=== PATIENT | male | born 1960 | race Caucasian/White ===

== ENCOUNTER 2018-08-20 20:14 | Emergency (ER) | payer SELFPAY ==
[~2018-08-20] VITALS: Ht 177.8 cm; Wt 97.6 kg
[2018-08-20 20:24] VITALS: RESP 18; Ht 177.8 cm; Wt 97.6 kg
--- NOTE | 2018-08-21 01:59 | ERD ---
ER Documentation Chief Complaint Chief Complaint pain right foot x 1 week, denies trauma. also c/o gen body pain HPI This is a 57-year-old male presents emergency department with complaints of right foot pain for about a week. Stated that pain is worse every morning when he started stepping on it. Also stated that last Saturday he had an intake of beer and the pain got worse. Also added that he has history of gout. Denies headache, head injury, loss of consciousness, dizziness, neck pain, neck stiffness, throat pain, difficulty swallowing, difficulty breathing lying flat, shoulder pain, chest pain, back pain, abdominal pain, nausea, vomiting, constipation, diarrhea, urinary symptoms, loss of bowel and bladder control, trauma, injury, falls, numbness or tingling sensation, calf pain, recent travel, recent major surgery in the last 3 weeks, calf pain, recent long travel, recent exposure to any illness, recent antibiotic use in the last 3 months, fever, chills, seizures. Past medical history: Surgical history: Social: Denies smoking, use of alcoholic beverages, use of illegal drugs. ROS All systems reviewed and are negative except as per history of present illness. Medications Home Meds Active Scripts Omeprazole* (Omeprazole*) 40 Mg Capsule.dr, 40 MG PO DAILY, #30 CAP Prov:MAN LOBO 08/21/18 Naproxen* (Naprosyn*) 500 Mg Tablet, 500 MG PO BID PRN for PAIN AND/OR INFLAMMATION, #30 TAB Please take with food Prov:MAN LOBO F 08/21/18 Allergies Allergies: Coded Allergies: No Known Allergy (Unverified , 05/26/13) PMhx/Soc Hx Alcohol Use: No Hx Substance Use: No Hx Tobacco Use: No Physical Exam Vitals Physical Exam Const: No acute distress Head: Atraumatic Eyes: Normal Conjunctiva ENT: Normal External Ears, Nose and Mouth. Neck: Full range of motion. No meningismus. Resp: Clear to auscultation bilaterally Cardio: Regular rate and rhythm, no murmurs Abd: Soft, non tender, non distended. Normal bowel sounds Skin: No petechiae or rashes Back: No midline or flank tenderness Ext: No cyanosis. Right foot: Swelling to the distal area of the right big toe. Right big toe is good and full range of motion without suspicion of tendon injury. Right pedal pulses within normal limits. Plantar area of the right foot has tenderness to palpation. Patient is able to bear weight on right lower extremity. Right ankle is unremarkable. Right calf is no tenderness to palpation. Right knee is unremarkable. Bilateral hips are stable and unr emarkable. Left lower extremity is unremarkable. No neurovascular deficit. Ambulatory with steady gait. Neur: Awake and alert. No obvious facial droop. Follows commands. Equal run lead. Equal strength in bilateral upper and lower extremities. Sensation is intact. Ambulatory with steady gait. No neurological deficit. Psych: Normal Mood and Affect Results 24 hrs Current Medications Medications Dose Sig/Jose Luis Start Time Status Last (Trade) Ordered Route PRN Stop Time Admin Dose Reason Admin Colchicine 1.2 mg ONCE ONCE 08/21/18 DC 08/21/18 (Colchicine) PO 02:00 02:41 08/21/18 02:01 Colchicine 0.6 mg ONCE ONCE 08/21/18 DC 08/21/18 (Colchicine) PO 02:00 02:42 08/21/18 02:01 Clonidine 0.1 mg ONCE ONCE 08/21/18 DC 08/21/18 (Catapres) PO 02:00 02:41 08/21/18 02:01 Procedures/MDM Diagnostic tests: Clinical exam. Treatment: Colchicine 1.2 mg x1 dose then colchicine 0.6 mg 1 hour after the first dose. Clonidine. Re-evaluation: Blood pressure has improved. Denies headache, neck pain, dizziness, blurry vision, chest pressure, shoulder pain. Denies pain. Right pedal pulses within normal limits. No neurovascular deficit. Romberg test negative. No neurological deficit. Ambulatory with steady gait. Differential diagnosis I have low suspicion for septic joint, Lisfranc fracture, compartment syndrome, DVT. Final diagnosis: Gout flare. Plantar fasciitis. Prescription: Omeprazole. Naprosyn. Follow-up with PCP in the next 24-48 hours. Come back here in the emergency department for any new symptoms or any worsening symptoms. All questions and concerns were answered. Patient and family members verbalized understanding and agreed with plan of care. Hemodynamically stable on discharge. Departure Diagnosis: Primary Impression: Plantar fasciitis Additional Impression: Gout Condition: Stable Additional Instructions: Follow-up with PCP in the next 24-48 hours. Come back here in the emergency department for any new symptoms or any worsening symptoms. MAN LOBO Aug 21, 2018 01:59
[2018-08-21] MEDS ORDERED: COLCHICINE 0.6 MG TAB PO ONE ×2 (02:00)
[2018-08-21] MEDS ORDERED: NAPR-985 PO (02:03)
[2018-08-21] MEDS ORDERED: OMEP40CA6 PO (02:03)
[2018-08-21 02:50] VITALS: BP 176/99; PULSE 63
== END 2018-08-21 03:06 | disposition home or self-care (01) ==
LOC: FTE 20:14
DX: M72.2 Plantar fascial fibromatosis (principal); M10.9 Gout, unspecified
CPT/HCPCS: 99283

== ENCOUNTER 2019-03-30 10:05 | Emergency (ER) | payer MEDICAID, OTHER ==
[~2019-03-30] VITALS: Wt 96.9 kg
[~2019-03-30 10:05] MED LIST: HYDR25TA6 PO; NAPR-985 PO; OMEP40CA38 PO
[2019-03-30] MEDS ORDERED: SOD CHLORIDE 0.9% 500 ML IV STA (10:28)
[2019-03-30] MEDS ORDERED: KETOROLAC 15 MG INJ IV STA (10:28)
[2019-03-30] MEDS ORDERED: LIDOCAINE 2% VISC 10 ML CUP PO ONE (10:30)
[2019-03-30] MEDS ORDERED: AL HYDROX/MG HYDROX/SIMETH 30 ML CUP PO ONE (10:30)
[2019-03-30 12:23] VITALS: BP 159/79; PULSE 84; RESP 18
== END 2019-03-30 12:26 | disposition home or self-care (01) ==
LOC: E/R 10:05
DX: R07.9 Chest pain, unspecified (principal); I10 Essential (primary) hypertension
CPT/HCPCS: 36415; 71045; 80053; 80307; 83690; 83880; 84484; 85025; 93005; 96374; J1885; J7040; Z7502; Z7610